=== PATIENT | female | born 1945 | race Caucasian/White ===

== ENCOUNTER 2021-04-16 16:09 | Emergency (ER) | payer MEDICARE, OTHER, SELFPAY ==
[2021-04-16 16:12] VITALS: BP 157/76; PULSE 75; RESP 14; TEMP 36.3; O2SAT 96; BMI 23.6
--- NOTE | 2021-04-16 17:02 | HMH.EDUTC ---
[facility] [place]ression: Skin lesion Disposition: Home, Self-Care Condition on Discharge: Good Instructions: DI for Headache Additional Instructions: If you have Headache you may take over the counter Motrin and/or Tylenol if your Family Doctor has told you that it is ok for your to take *Follow up with Family Doctor as scheduled Return if needed FOllow up with Dermatology for evaluation of skin lesion on right side of forehead Straight to ER if any life threatening symptoms, worse headache of your life, loss of vision or any life threatening symptoms Referrals: Caden Pena MD [Primary Care Provider] - As needed Time of Disposition: 17:17 Medical Decision Making - Rafiq Inquiry Pt receiving controlled substance: No Rafiq was queried for this patient: No Vital Signs: 04/16/21 16:12 04/16/21 17:15 Temperature 97.4 F L 98 F Temperature Source Tympanic Pulse Rate 77 Pulse Rate [Right] 75 Respiratory Rate 14 14 Blood Pressure 157/76 H Blood Pressure [Right Arm] 157/76 H Blood Pressure Mean [Right Arm] 103 Blood Pressure Source [Right Arm] Automatic Cuff Blood Pressure Position [Right Arm] Sitting 02 Sat by Pulse Oximetry 96 Oxygen Delivery Method Room Air Medical Decision Narrative: Patient states that she is not having any pain at this time, not having any visual disturbances or pain States that brown spot in hairline no longer feels swollen Discussed with patient that we could send her to the ED for further evaluation possible CT if ER physician seen the need and patient declined States that she is feeling fine now and has appointment with her new PCP tomorrow and she will discuss it with him Patient educated that if she starts having any facial weakness, numbness and educated on signs of stroke worsening of headache etc go straight to the closest ED patient did states that she has had some clear drainage from her nose and watery eyes like allergy symptoms also recommended follow up with Dermatolgy to view the brown round area noted in hairline that patient is concerned with that we would not remove it here in the [facility] HPI - General Stated complaint: knort on forehead above right eye Time Seen by Provider: 04/16/21 17:02 Mode of Arrival: Ambulatory Source of Information: Patient Limitations: No Limitations Description of Symptoms (Recalled from Triage Doc. by RN): pt states she has a knot on the R side of her anglican. pt states it swells up at times and is painful. pt says its hurting and swollen today. she also has a PLASENCIA. no visible swelling. HEENT Symptoms (Recalled from RN notes): No Resp Symptoms (Recalled from RN notes): No Skin Symptoms (Recalled from RN notes): Yes (round olson spot in hair line by Tushar floyd) MS Symptoms (Recalled from RN notes): No Functional Status (Recalled from RN notes): na - History of Present Illness Provider Complaint: Patient state that she has a dark spot on the right side of her anglican/forehead area that at times will swell up and be tender to the touch States that at times she has headaches on and off seen her previous PCP and dermatology several times for this and was told it was nothing States that earlier today she laid down and when she woke up it was swollen and tender to the touch and felt like she was going to get a headache and she seen some spots in front of her right eye States that after arrival at the [facility] [place] swelling is now gone, no longer tender and no longer having any pain States that she has tramadol but hasnt taken it - Related Data Allergies Allergy/AdvReac Type Severity Reaction Status Date / Time Sulfa (Sulfonamide Allergy Verified 04/16/21 16:41 Antibiotics) - Worker's Comp Is this a Worker's Comp case?: No [facility] History - Hepatitis A Screen Drug use history?: No High risk sexual behaviors?: No History of sexually transmitted infection?: No Currently employed?: No Childcare worker?: No Do you have indoor plumbing?:
[2021-04-16 17:15] VITALS: BP 157/76; PULSE 77; RESP 14; TEMP 36.6
== END 2021-04-16 17:20 | disposition home or self-care (01) ==
PROVIDERS: Emergency Provider Nurse Practitioner; PCP Family Medicine
DX: L98.9 Disorder of the skin and subcutaneous tissue, unspecified (principal); R51.9 Headache, unspecified
CPT/HCPCS: G0463; 99202

== ENCOUNTER → 2021-05-22 16:55 | Outpatient (CLI) | payer MEDICARE, OTHER, SELFPAY ==
[2021-05-22 18:25] LABS: C-Reactive Protein 5.4 mg/L (0-4)
[2021-05-22 18:49] LABS: Erythrocyte Sedimentation Rate 11 mm/hr (0-30)
== END ==
PROVIDERS: Visit Provider Family Medicine
DX: R51.9 Headache, unspecified (principal)
CPT/HCPCS: 85651; 86140

== ENCOUNTER → 2021-12-10 14:04 | Outpatient (CLI) | payer MEDICARE, OTHER, SELFPAY ==
--- NOTE | 2021-12-10 14:05 | CT_ITS ---
FINAL REPORT TECHNIQUE: Axial images were obtained through the chest without contrast. CLINICAL HISTORY: pulmonary nodules follow up COMPARISON: Outside report dated 01/07/2021 FINDINGS: There is no significant mediastinal mass or adenopathy. There is mild bilateral pleural and parenchymal scarring. There are several small bilateral noncalcified nodules. Paper Cup Machine Tender example is a 3 mm right middle lobe nodule well-seen on image #153 of series 3. There is a nodule in the left lower lobe measuring 4 mm well-seen on image #186 of series 3. Other smaller nodules are identified. There is a benign-appearing cyst in the superior pole of the right kidney measuring 0.3 cm. There is a peripherally calcified structure arising from the inferior margin of the spleen measuring 4.5 x 3.7 cm, probably related to an old calcified hematoma. IMPRESSION: Small bilateral nodules which are nonspecific. Recommend continued follow-up. Reviewed, Interpreted and Dictated by Romero Medina MD Transcribed by Misty Harper Authenticated by Romero Medina MD on 12/10/2021 04:52:42 PM [facility]
== END ==
PROVIDERS: PCP Family Medicine; Visit Provider Family Medicine
DX: R91.8 Other nonspecific abnormal finding of lung field (principal)
CPT/HCPCS: 71250

== ENCOUNTER → 2022-04-27 13:32 | Outpatient (CLI) | payer MEDICARE, OTHER, SELFPAY | PROVIDERS: PCP Family Medicine; Visit Provider Internal Medicine | DX: Z01.812 Encounter for preprocedural laboratory examination (principal); Z20.822 Contact with and (suspected) exposure to COVID-19; Z13.810 Encounter for screening for upper gastrointestinal disorder; K21.9 Gastro-esophageal reflux disease without esophagitis; Z12.11 Encounter for screening for malignant neoplasm of colon | CPT/HCPCS: C9803; U0003; U0005 ==

== ENCOUNTER 2022-04-29 08:34 | Day surgery (SDC) | payer MEDICARE, OTHER, SELFPAY ==
[2022-04-28 12:00] VITALS: BMI 26.2
[2022-04-29 09:21] VITALS: BP 169/86; PULSE 61; RESP 18; TEMP 36.4; O2SAT 96
--- NOTE | 2022-04-29 10:28 | P.PN_ITS ---
[facility] Anesthesia Checklist - Structural Data Admitted From: Home Planned Operative Procedure/s: egd/colonoscopy Consent for Planned Operative Procedure(s) Verified: Yes - Airway Assessment C-Spine Mobility Assessed: Yes TMJ Mobility Assessed: Yes Dentition: Good Dentition - Neurological Assessment Level of Consciousness: Awake, Alert, Appropriate - Anesthesia Plan Anesthesia Risk discussed: Yes Anesthesia Plan: Verified ASA Class: II Anesthesia Type: MAC [facility] History I have reviewed the patient's past medical history: Yes Medical History: Reports:: Anxiety, Asthma, Congestive Heart Failure, Depression, Gall Bladder Disease Denies:: Cancer, Diabetes Mellitus Type 1, Diabetes Mellitus Type 2, Internal Pacemaker, MRSA, Seizures *Have you ever received a pneumonia vaccine?: Yes *Have you received a flu vaccine this season?: Yes Anesthesia experience/problems:: none Other Surgeries: Yes: Cardiac Catheterization, Cholecystectomy, Colonoscopy, Tubal Ligation. No: Pacemaker Amputation: No Fractures: No - *Social History Last grade of school completed: 7th or 8th Smoking Status: Never smoker Alcohol Intake: never Substance Use Type: denies use *Occupational Status:: retired Housing: house Household Members: none *Travel in the last 8 weeks: None - Psychiatric History Pschychiatric History:: Reports:: Anxiety, Depression Family Hx:: No significant family history
[2022-04-29 10:31] VITALS: O2SAT 96
[2022-04-29 11:00] VITALS: BP 95/65; PULSE 86; RESP 18; TEMP 36.5; O2SAT 95
--- NOTE | 2022-04-29 11:02 | HMH.SCOPE ---
- Procedure: Date: 04/29/22 Patient Date of :: 1945 Procedure Performed:: EGD Indications:: 76 year old presents for EGD evaluation of GERD and intermittent abdominal pain. Symptoms have improved with use of pantoprazole. Performing Provider:: Kamar Rangel MD Referring Provider:: Caden Pena MD Sedation:: See RN records Procedure:: The gastroscope was gently passed through the incisoral orifice into the oral cavity and under direct visualization the esophagus was intubated. The endoscope was passed down the esophagus, through the stomach, and into the duodenum. Color, texture, mucosa, and anatomy of the esophagus, stomach, and duodenum were carefully examined with the scope. Findings:: Oropharynx: normal Esophagus: normal EG Junction: intact at 40 cm Cardia: normal Fundus: normal Body: Mild gastritis. Biopsies obtained. Bilious fluid Antrum: Mild gastritis. Biopsies obtained Duodenal bulb: normal Duodenum (second and third portion): normal Recommendations:: Await pathology results Continue pantoprazole 40 mg once daily Complications:: None Estimated blood obtained (mL): 0
--- NOTE | 2022-04-29 11:04 | HMH.SCOPE ---
- Procedure: Date: 04/29/22 Patient Date of :: 1945 Procedure Performed:: Colonoscopy Indications:: 76 year old presents for surveillance colonoscopy for history of polyps Performing Provider:: Kamar Rangel MD Referring Provider:: Caden Pena MD Sedation:: See RN records Procedure:: After placing the patient in the left lateral decubitus position, the colonoscopy was gently inserted into the rectum and under direct visualization advanced to the cecum which was identified by transillumination in the right lower quadrant, identification of the ileocecal valve, appendiceal orifice, and cecal strap. Color, texture, mucosa, and anatomy of the colon were carefully examined with the scope. Findings:: Anal canal: normal Rectum: Sessile polyp less than 5 mm in size. Removed with snare polypectomy Sigmoid colon: normal without polyps or inflammatory changes Descending colon: normal without polyps or inflammatory changes Splenic flexure: normal Transverse colon: normal without polyps or inflammatory changes Hepatic flexure: normal Ascending colon: normal without polyps or inflammatory changes Cecum: normal Terminal ileum: not visualized Recommendations:: Await pathology results No further surveillance colonoscopy can be recommended Complications:: None Estimated blood obtained (mL): 0
[2022-04-29 11:10] VITALS: BP 114/62; PULSE 79; RESP 18; O2SAT 96
[2022-04-29 11:20] VITALS: BP 128/68; PULSE 84; RESP 18; O2SAT 95
[2022-04-29 11:29] VITALS: BP 140/70; PULSE 85; RESP 18; O2SAT 94
== END 2022-04-29 11:30 | disposition home or self-care (01) ==
LOC: OUTP 08:35
PROVIDERS: PCP Family Medicine; Visit Provider Internal Medicine
PROC: 0DJ08ZZ Inspection of Upper Intestinal Tract, Via Natural or Artificial Opening Endoscopic (ICD-10-PCS; CPT 43235; principal; 2022-04-29 10:30)
DX: K21.9 Gastro-esophageal reflux disease without esophagitis (principal); Z12.11 Encounter for screening for malignant neoplasm of colon; R10.9 Unspecified abdominal pain; Z86.010 Personal history of colon polyps; Z79.899 Other long term (current) drug therapy; I10 Essential (primary) hypertension; F32.A Depression, unspecified
CPT/HCPCS: 43239; 45385; 88305

== ENCOUNTER → 2022-12-01 13:10 | Outpatient (CLI) | payer MEDICARE, OTHER, SELFPAY ==
--- NOTE | 2022-12-01 13:14 | XR_ITS ---
FINAL REPORT CLINICAL HISTORY: pain, hx fx in L4 and L5 FINDINGS: AP and lateral views of the lumbar spine were obtained. There is no prior exam for comparison. There is no acute fracture or malalignment. Multilevel degenerative disease is most pronounced at L5-S1. The paraspinal soft tissues are normal. There is a periphery calcified lesion in the left upper quadrant which is likely benign and within the spleen. IMPRESSION: No acute osseous abnormality of the lumbar spine. Reviewed, Interpreted and Dictated by Tamara Posey MD Transcribed by Tony Griffith Authenticated and [facility]
--- NOTE | 2022-12-01 13:14 | XR_ITS ---
FINAL REPORT CLINICAL HISTORY: pain, hx fx in L4 and L5 FINDINGS: AP and lateral views of the thoracic spine were obtained. There is no prior exam for comparison. There is no acute fracture or acute malalignment. Mild multilevel degenerative disease. The paraspinal soft tissues are normal. IMPRESSION: No acute osseous abnormality of the thoracic spine. Reviewed, Interpreted and Dictated by Tamara Posey MD Transcribed by Tony Griffith Authenticated and [facility]
== END ==
PROVIDERS: PCP Family Medicine; Visit Provider Family Medicine
DX: G89.29 Other chronic pain (principal); M54.9 Dorsalgia, unspecified; M54.6 Pain in thoracic spine; M54.50 Low back pain, unspecified
CPT/HCPCS: 72070; 72100

== ENCOUNTER → 2023-03-22 14:35 | Outpatient (CLI) | payer MEDICARE, OTHER, SELFPAY ==
[2023-03-22 18:40] LABS: Chloride 96 mmol/L (98-107); Sodium 141 mmol/L (136-145)
[2023-03-22 18:41] LABS: Basophils % 0.5 % (0.1-2.0); Eosinophils # 0.4 K/mm3 (0.0-0.4); Hematocrit 44.4 % (37.0-47.0); Lymphocytes # 1.9 K/mm3 (0.7-4.5); Lymphocytes % 27.3 % (10-50); Mean Corpuscular HGB Conc 31.5 g/dL (31.8-35.4); Mean Corpuscular Hemoglobin 28.4 pg (27.0-31.2); Mean Corpuscular Volume 90.2 fl (81-99); Mean Platelet Volume 7.9 fl (7.4-10.4); Monocytes # 0.5 K/mm3 (0.1-1.0); Monocytes % 6.6 % (1.7-9.3); Neutrophils # 4.1 K/mm3 (1.8-7.8); Neutrophils % 59.6 % (37.0-80.0); Platelet Count 275 K/mm3 (142-424); Red Blood Count 4.92 M/mm3 (4.20-5.40); Red Cell Distribution Width 13.2 % (11.5-17.5); White Blood Count 6.9 K/mm3 (4.8-10.8)
[2023-03-22 18:42] LABS: Blood Urea Nitrogen 11 mg/dl (7-17); Estimated Glomerular Filt Rate 60 ml/min (>60); GFR (African American) 73 ML/MIN (>60)
[2023-03-22 18:43] LABS: Alanine Aminotransferase 18 U/L (12-78); Albumin Level 4.5 g/dl (3.5-5.0); Albumin/Globulin Ratio 1.6 (1.1-1.8); Alkaline Phosphatase 50 U/L (38-126); Aspartate Amino Transferase 28 U/L (14-36); Bilirubin,Total 0.7 mg/dl (0.2-1.3); Calcium 9.3 mg/dl (8.4-10.2); Carbon Dioxide 31 mmol/L (22.0-30.0); Globulin 2.8 g/dL (1.3-3.2); Glucose 86 mg/dl (74-100); Total Protein,Serum 7.3 g/dl (6.3-8.2)
== END ==
PROVIDERS: PCP Nurse Practitioner Family; Visit Provider Nurse Practitioner Family
DX: L98.9 Disorder of the skin and subcutaneous tissue, unspecified (principal); G89.29 Other chronic pain; M54.9 Dorsalgia, unspecified
CPT/HCPCS: 80053; 85025

== ENCOUNTER → 2023-03-24 14:57 | Outpatient (CLI) | payer MEDICARE, OTHER, SELFPAY ==
--- NOTE | 2023-03-24 15:03 | XR_ITS ---
FINAL REPORT CLINICAL HISTORY: Neck pain, mid back and low back pain, Recent fall 3 wks ago COMPARISON: 12/01/2022 thoracic and lumbosacral spine FINDINGS: CERVICAL SPINE Four views of the cervical spine were obtained. There is no fracture present. There is no malalignment. There is moderate degenerative disc disease at C5-6. Mild degenerative disc space narrowing at C4-5 and C6-7. There is bony neural foraminal narrowing bilaterally at C4-5 and C5-6. THORACIC SPINE Three views of the thoracic spine were obtained. There is no fracture present. There is no malalignment. There is no significant degenerative change. LUMBOSACRAL SPINE Four views of the lumbosacral spine were obtained. There is no fracture. There is moderate diffuse degenerative disc disease. Osteopenia is noted. There is a calcified mass projected over the left upper quadrant which may be of splenic origin measuring greater than 5 cm. IMPRESSION: No acute fracture identified. Degenerative changes as above. Calcified mass left upper quadrant. Recommend CT correlation if not previously evaluated. Reviewed, Interpreted and Dictated by Ingrid Gore MD Transcribed by Rylie Prieto Authenticated and [facility]
--- NOTE | 2023-03-24 15:03 | XR_ITS ---
FINAL REPORT CLINICAL HISTORY: Acute left hip pain, fall 3 weeks ago COMPARISON: None FINDINGS: LEFT HIP: Two views of the left hip demonstrate no acute fracture or dislocation. The joint spaces appear normal. The visualized bony structures are well aligned. No soft tissue abnormality is seen. IMPRESSION: No acute bony abnormality. Reviewed, Interpreted and Dictated by Ingrid Gore MD Transcribed by Rylie Prieto Authenticated and . [facility]
== END ==
PROVIDERS: PCP Family Medicine; Visit Provider Nurse Practitioner Family
DX: M25.552 Pain in left hip
CPT/HCPCS: 72084; 73502

== ENCOUNTER → 2023-04-09 07:04 | Outpatient (CLI) | payer MEDICARE, OTHER, SELFPAY ==
--- NOTE | 2023-04-09 07:28 | CT_ITS ---
FINAL REPORT TECHNIQUE: Axial CT images of the abdomen and pelvis were obtained before and after the administration of IV contrast. This study was performed with techniques to keep radiation doses as low as reasonably achievable (ALARA). Individualized dose reduction techniques using automated exposure control or adjustment of mA and/or kV according to the patient''s size were employed. CLINICAL HISTORY: abdominal mass noted on lspine xray FINDINGS: Abdomen: There is mild scarring or atelectasis at the left lung base. The heart is normal in size. The liver has an unremarkable appearance, without evidence of mass or biliary duct dilatation. Patient is status post cholecystectomy. A peripherally calcified mass is seen in the inferior spleen measuring 46 mm likely representing posttraumatic cyst. No adrenal masses present. The pancreas has an unremarkable appearance. There are bilateral renal cysts. The kidneys enhance normally. The aorta is normal in caliber. There is no free fluid or adenopathy. No mass or abnormal fluid collection is seen. There is stranding of the small bowel mesentery which may represent mesenteric panniculitis or may be reactive. Precontrast images demonstrate no evidence of nephrolithiasis. Pelvis: The appendix is normal. The urinary bladder is unremarkable. No inflammatory process is seen. There is no evidence of mass or adenopathy. There is no evidence of bowel obstruction. IMPRESSION: Peripherally calcified mass in the inferior spleen likely representing posttraumatic cyst. Stranding of small bowel mesentery which may represent mesenteric panniculitis or may be reactive. Reviewed, Interpreted and Dictated by Gavin Hogan III, MD Transcribed by Lila Toscano Authenticated and . [facility]
== END ==
PROVIDERS: PCP Family Medicine; Visit Provider Nurse Practitioner Family
DX: R19.02 Left upper quadrant abdominal swelling, mass and lump (principal)
CPT/HCPCS: 74178; Q9967

== ENCOUNTER → 2023-10-20 12:00 | Outpatient (CLI) | payer MEDICARE, OTHER, SELFPAY ==
[2023-10-20 19:33] LABS: Amphetamine/Metha Screen,Urine Negative ng/ml (<1000)
[2023-10-20 19:35] LABS: Barbiturates Screen,Urine Negative ng/ml (<200); Benzodiazepines Screen,Urine Positive ng/ml (<200)
[2023-10-20 19:36] LABS: Cannabinoid Screen,Urine Negative ng/ml (<50)
[2023-10-20 19:37] LABS: Cocaine Screen,Urine Negative ng/ml (<300); Methadone Screen,Urine Negative ng/ml (<300)
[2023-10-20 19:38] LABS: Opiate Screen,Urine Negative ng/ml (<300); Phencyclidine Screen,Urine Negative ng/ml (<25)
== END ==
PROVIDERS: PCP Family Medicine; Visit Provider Family Medicine
DX: Z79.899 Other long term (current) drug therapy (principal)
CPT/HCPCS: 80305

== ENCOUNTER 2024-10-05 13:02 | Emergency (ER) | payer MEDICARE, OTHER, SELFPAY ==
[2024-10-05] VITALS (7 sets, daily range): BP systolic 131–194; BP diastolic 71–122; PULSE 95–118; RESP 12–21; TEMP 36.7; O2SAT 93–95; BMI 23.9
--- NOTE | 2024-10-05 14:02 | ECG_ITS ---
APPROVED REPORT Exam: Resting ECG HR:114 bpm ECG Measurements Heart Rate 114 AXES MI 145 P 65 QRSd 90 QRS 38 QT 337 T 67 QTc 405 Conclusion SINUS TACHYCARDIA POSSIBLE RIGHT VENTRICULAR CONDUCTION DELAY [RSR (QR) IN V1/V2] ABNORMAL RHYTHM ECG Electronically signed by : NEISHA YUAN, 10/05/2024 15:13:00
--- NOTE | 2024-10-05 14:03 | ED_ITS ---
Discharge Plan Disposition Patient Disposition: Home, Self-Care Condition: Good Prescriptions Prescriptions: No Action buspirone 5 mg tablet 5 mg PO BID Qty: 180 1RF escitalopram oxalate 10 mg tablet See Rx Instructions .ROUTE .COMPLEX Qty: 90 1RF Dose Instruction: TAKE ONE TABLET BY MOUTH EVERY DAY Rx Instructions: TAKE ONE TABLET BY MOUTH EVERY DAY meloxicam 7.5 mg tablet 7.5 mg PO DAILY Qty: 30 3RF cholecalciferol (vitamin D3) 1,250 mcg (50,000 unit) capsule 1,250 mcg PO WEEKLY Patient Comments: TAKE ONE CAPSULE BY MOUTH WEEKLY atorvastatin 10 mg tablet 10 mg PO DAILY Patient Comments: TAKE ONE TABLET BY MOUTH AT BEDTIME amlodipine-benazepril 10-40 mg capsule 1 cap PO DAILY Patient Comments: TAKE ONE CAPSULE BY MOUTH EVERY DAY alprazolam [Xanax] 1 mg tablet 0.5 mg PO TID PRN (Reason: anxiety) Qty: 45 5RF Rx Instructions: use sparingly when able Referrals Follow up/Referrals: Caden Pena MD [Primary Care Provider] - See instructions Activity Restrictions/Add. Instructions Additional Instructions/Restrictions: On workup today, you were found to have stable pulmonary nodules that are not significantly changed from prior imaging. At this time it was felt you are safe to be discharged home. If new or worsening symptoms please do not hesitate to return the emergency department. As discussed please buy compression stockings also known as ROLANDO hose to have on your legs during the day. Please follow-up with your appeals rn or family doctor for possible reinitiation of your blood pressure medication as discussed. Clinical Impressions Clinical Impression: Venous stasis, Chest pain Print Language Print Language: Divehi Discharge ED Provider: Vanda Waterman General Adult HPI <Giancarlo Brizuela MD - Last Filed: 10/05/24 14:53> General Chief complaint: Recheck/Abnormal Lab/Rx Stated complaint: high b/p, swollen arms and legs, dizzy Time Seen by Provider: 10/05/24 13:12 Mode of Arrival: Ambulatory Source of Information: Patient Limitations: No Limitations Description of Symptoms (Recalled from ER Triage Doc. by RN): Reports having symptoms for approx 1 year. States that she has been seen multiple times by her PCP, Cardiology and Psyc with no improvement. States she thinks they are tired of dealing with her. Reports leg swelling, arm pain and shaking. States she has been having multiple panic attacks and it makes her feel as if she is going to . History of Present Illness HPI narrative: Patient is 79-year-old female who presents emergency department for multiple chronic complaints. Over the last year she has had stuttering twinging chest pain and shortness of breath. She is not having any chest pain currently. 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 She also has intermittent swelling of her bilateral lower extremities that is symmetrical and worse as the day goes on, she does not wear compression hose and it improves upon lying down. She does not take water pills. No other acute complaints at this time. Related Data Home Medications ?Medication ?Instructions ?Recorded ?Confirmed amlodipine 10 mg-benazepril 40 mg 1 cap PO DAILY 09/18/24 09/18/24 capsule atorvastatin 10 mg tablet 10 mg PO DAILY 09/18/24 09/18/24 cholecalciferol (vitamin D3) 1,250 1,250 mcg PO WEEKLY 09/18/24 09/18/24 mcg (50,000 unit) capsule Previous Rx's ?Medication ?Instructions ?Recorded buspirone 5 mg tablet 5 mg PO BID #180 tabs 05/10/23 escitalopram oxalate 10 mg tablet See Rx Instructions .Route 01/06/24 .COMPLEX #90 tabs alprazolam 1 mg tablet (Xanax) 0.5 mg (1/2 x 1 mg) PO TID PRN 06/08/24 anxiety #45 tabs meloxicam 7.5 mg tablet 7.5 mg PO DAILY #30 tabs 07/14/24 Allergies Allergy/AdvReac Type Severity Reaction Status Date / Time aspirin Allergy Unknown Verified 09/18/24 14:18 duloxetine (From Cymbalta) Allergy Unknown Verified 09/18/24 14:18 ibuprofen Allergy Unknown Verified 09/18/24 14:18 Sulfa (Sulfonamide Allergy Verified 09/18/24 14:18 Antibiotics) [facility] <Giancarlo Brizuela MD - Last Filed: 10/05/24 14:53> [facility] Disclaimer: The information contained in this section may have been updated after the patient was seen, as this information can be updated by other users. Medical History (Updated 10/05/24 @ 14:47 by Giancarlo Brizuela MD) Neoplasm of uncertain behavior of scalp History of recent fall Chronic back pain greater than 3 months duration GERD (gastroesophageal reflux disease) Asthma Anxiety Depression Surgical History History of cholecystectomy Hx of tubal ligation Family History Other Cancer Hyperlipidemia Social History (Updated 10/05/24 @ 14:53 by Giancarlo Brizuela MD) Smoking Status: Never smoker alcohol intake: never substance use type: denies use current occupational status: retired Travel in the last 8 weeks: None household members: none housing: house current occupational exposures/hazards: No caffeine: Yes Other Medical History Have you received the Flu Vaccine for this season: Yes Have you received the Pneumonia Vaccine: No <Giancarlo Brizuela MD - Last Filed: 10/05/24 14:53> ROS Obtained: Yes Systems reviewed as appropriate & no additional complaints except as documented Physical Exam <Giancarlo Brizuela MD - Last Filed: 10/05/24 14:53> General General appearance: alert and in no apparent distress Head Head exam: atraumatic and normocephalic Eye Eye exam: Present PERRL and EOMI ENT ENT exam: Present mucous membranes moist Neck Neck exam: Present normal inspection Chest Chest inspection: Present normal inspection and symmetric chest wall rise Respiratory Respiratory exam: Present normal lung sounds bilaterally; Absent respiratory distress Cardiovascular Cardiovascular exam: Present normal rhythm and tachycardia Abdominal Exam Abdominal exam: Present soft; Absent tenderness Extremities Exam Extremities exam: Present normal inspection and other (No pitting edema bilateral lower extremities.) Neurological Exam Neurological exam: Present alert Psychiatric Psychiatric exam: Present normal affect Skin Skin exam: Present warm and dry Medical Decision Making <Giancarlo Brizuela MD - Last Filed: 10/05/24 14:53> Medical Records Screening: Per USPSTF and CDC recommendations, given the prevalence of disease in our region, it is our hospital?s policy to screen for HIV and viral Hepatitis for all patients aged 18 and over and those with ongoing risk factors. Rafiq Inquiry Pt receiving controlled substance: No Vital Signs: 10/05/24 13:13 10/05/24 13:31 10/05/24 13:47 Temperature 98.1 F Temperature Source Oral Pulse Rate 118 H 107 H Pulse Rate [Radial] 111 H Respiratory Rate 20 21 20 Blood Pressure 152/122 H 154/81 H Blood Pressure [Right Arm] 194/104 H Blood Pressure Mean 132 105 Blood Pressure Mean [Right Arm] 134 Blood Pressure Source [Right Arm] Automatic Cuff Blood Pressure Position [Right Arm] Sitting 02 Sat by Pulse Oximetry 95 94 L 93 L Oxygen Delivery Method Room Air Room Air Room Air 10/05/24 14:00 10/05/24 14:31 10/05/24 15:30 Temperature Temperature Source Pulse Rate 95 H 107 H 108 H Pulse Rate [Radial] Respiratory Rate 16 12 Blood Pressure 144/93 H 131/71 149/95 H Blood Pressure [Right Arm] Blood Pressure Mean Blood Pressure Mean [Right Arm] Blood Pressure Source [Right Arm] Blood Pressure Position [Right Arm] 02 Sat by Pulse Oximetry 93 L 94 L 95 Oxygen Delivery Method 10/05/24 16:23 Temperature 98.1 F Temperature Source Pulse Rate 108 H Pulse Rate [Radial] Respiratory Rate 18 Blood Pressure 144/100 H Blood Pressure [Right Arm] Blood Pressure Mean Blood Pressure Mean [Right Arm] Blood Pressure Source [Right Arm] Blood Pressure Position [Right Arm] 02 Sat by Pulse Oximetry Oxygen Delivery Method Room Air Lab Data Lab Results 10/05/24 14:12: WBC 7.1, RBC 4.76, Hgb 13.7, Hct 42.3, MCV 89.0, MCH 28.9, MCHC 32.5, RDW 13.3, Plt Count 202, MPV 7.4, Neut % (Auto) 74.7, Lymph % (Auto) 16.4, [place] % (Auto) 5.9, Eos % (Auto) 2.4, Baso % (Auto) 0.6, Neut # (Auto) 5.3, Lymph # (Auto) 1.2, [place] # (Auto) 0.4, Eos # (Auto) 0.2, Baso # (Auto) 0.0, D-Dimer 0.91 H, Sodium 142, Potassium 3.8, Chloride 103, Carbon Dioxide 33 H, Anion Gap 9.8, BUN 18 H, Creatinine 1.00, Estimated Creat Clear 45, Estimated GFR 53 L, Est GFR ( Amer) 64, Glucose 95, Calcium 9.0, Total Bilirubin 1.0, AST 25, ALT 16, Alkaline Phosphatase 38, Troponin I < 0.01, NT-Pro-B Natriuret Pep 263, Total Protein 6.8, Albumin 4.3, Globulin 2.5, Albumin/Globulin Ratio 1.7, HIV 1&2 Antibody Rapid Nonreactive 10/05/24 14:12 10/05/24 14:12 Orders (Tests/Meds): ED MEDICATIONS Discontinued Medications Generic Name Dose Route Start Last Admin Trade Name Richardq PRN Reason Stop Dose Admin Iopamidol 80 ml 10/05/24 15:04 10/05/24 15:05 Iopamidol-370 (76%);100ml Bottle IV 10/05/24 15:05 80 ml ONCE ONE Administration Sodium Chloride 40 ml 10/05/24 15:04 10/05/24 15:05 0.9 % Sodium Chloride 50 Ml Vial IV 10/05/24 15:05 40 ml ONCE ONE Administration Sodium Chloride 10 ml 10/05/24 15:04 10/05/24 15:05 Sodium Chloride 0.9% 10ml Syr (Rad Only) IV 10/05/24 15:05 10 ml ONCE ONE Administration ORDERS Category Date Time Status CT angio chest PE protocol Stat Cat Scan 10/05/24 14:45 Completed CXR --portable [XR chest portable] Stat Exams 10/05/24 14:03 Completed BNP [NT Pro Brain Natriuretic Pep.] Stat Lab 10/05/24 14:12 Completed CBC w/Auto Diff [Complete Blood Count Auto Diff] Stat Lab 10/05/24 14:12 Completed CMP [Comprehensive Metabolic Panel] Stat Lab 10/05/24 14:12 Completed D-Dimer Stat Lab 10/05/24 14:12 Completed HIV (1&2) Antibody Rapid Stat Lab 10/05/24 14:12 Completed Hep C Ab with Reflex to RNA Stat Lab 10/05/24 13:16 Received Trop I [Troponin I] Stat Lab 10/05/24 14:12 Completed ECG Data Tracing #1: Independently interpreted by me rate is 114, rhythm is regular, axis is normal, no ST elevation in anatomical contiguous leads, QTc 405 HEART Score History (anamnesis): Slightly suspicious ECG: Normal Age: >65 years Risk factors: 1-2 risk factors Troponin: </= normal limit HEART Score: 3 Medical Decision Narrative: In summary patient is 79-year-old female with past medical history described above who presents emergency department for evaluation of bilateral lower extremity intermittent swelling as well as intermittent chest pain. Patient is hemodynamically stable nontoxic-appearing upon arrival, afebrile, slight tachycardia. With the specter her symmetric bilateral lower extremity swelling that she is not experiencing significantly currently I suspect venous incompetence given her history and physical exam. For this the importance of ROLANDO lilly was discussed and patient acknowledged understanding. With respect to chest pain has been going on for a year we will conduct low risk chest pain workup, she does not have any currently. Workup will be conducted with chest x- ray, EKG, basic labs, single troponin. Initial workup reviewed by me, no significant leukocytosis, no MELINDA or critical electrolyte abnormality. D-dimer 0.91 given the chronicity of this and the fact that it cannot be excluded Wells criteria CT angio chest will be obtained. Initial troponin undetectably low. CTA chest and repeat evaluation pending at time of transition of care to the oncoming physician, Dr. Waterman. <Vanda Waterman, DO - Last Filed: 10/05/24 16:39> Vital Signs: 10/05/24 13:13 10/05/24 13:31 10/05/24 13:47 Temperature 98.1 F Temperature Source Oral Pulse Rate 118 H 107 H Pulse Rate [Radial] 111 H Respiratory Rate 20 21 20 Blood Pressure 152/122 H 154/81 H Blood Pressure [Right Arm] 194/104 H Blood Pressure Mean 132 105 Blood Pressure Mean [Right Arm] 134 Blood Pressure Source [Right Arm] Automatic Cuff Blood Pressure Position [Right Arm] Sitting 02 Sat by Pulse Oximetry 95 94 L 93 L Oxygen Delivery Method Room Air Room Air Room Air 10/05/24 14:00 10/05/24 14:31 10/05/24 15:30 Temperature Temperature Source Pulse Rate 95 H 107 H 108 H Pulse Rate [Radial] Respiratory Rate 16 12 Blood Pressure 144/93 H 131/71 149/95 H Blood Pressure [Right Arm] Blood Pressure Mean Blood Pressure Mean [Right Arm] Blood Pressure Source [Right Arm] Blood Pressure Position [Right Arm] 02 Sat by Pulse Oximetry 93 L 94 L 95 Oxygen Delivery Method 10/05/24 16:23 Temperature 98.1 F Temperature Source Pulse Rate 108 H Pulse Rate [Radial] Respiratory Rate 18 Blood Pressure 144/100 H Blood Pressure [Right Arm] Blood Pressure Mean Blood Pressure Mean [Right Arm] Blood Pressure Source [Right Arm] Blood Pressure Position [Right Arm] 02 Sat by Pulse Oximetry Oxygen Delivery Method Room Air Lab Data Lab Results 10/05/24 14:12: WBC 7.1, RBC 4.76, Hgb 13.7, Hct 42.3, MCV 89.0, MCH 28.9, MCHC 32.5, RDW 13.3, Plt Count 202, MPV 7.4, Neut % (Auto) 74.7, Lymph % (Auto) 16.4, [place] % (Auto) 5.9, Eos % (Auto) 2.4, Baso % (Auto) 0.6, Neut # (Auto) 5.3, Lymph # (Auto) 1.2, [place] # (Auto) 0.4, Eos # (Auto) 0.2, Baso # (Auto) 0.0, D-Dimer 0.91 H, Sodium 142, Potassium 3.8, Chloride 103, Carbon Dioxide 33 H, Anion Gap 9.8, BUN 18 H, Creatinine 1.00, Estimated Creat Clear 45, Estimated GFR 53 L, Est GFR ( Amer) 64, Glucose 95, Calcium 9.0, Total Bilirubin 1.0, AST 25, ALT 16, Alkaline Phosphatase 38, Troponin I < 0.01, NT-Pro-B Natriuret Pep 263, Total Protein 6.8, Albumin 4.3, Globulin 2.5, Albumin/Globulin Ratio 1.7, HIV 1&2 Antibody Rapid Nonreactive Orders (Tests/Meds): ED MEDICATIONS Discontinued Medications Generic Name Dose Route Start Last Admin Trade Name Freq PRN Reason Stop Dose Admin Iopamidol 80 ml 10/05/24 15:04 10/05/24 15:05 Iopamidol-370 (76%);100ml Bottle IV 10/05/24 15:05 80 ml ONCE ONE Administration Sodium Chloride 40 ml 10/05/24 15:04 10/05/24 15:05 0.9 % Sodium Chloride 50 Ml Vial IV 10/05/24 15:05 40 ml ONCE ONE Administration Sodium Chloride 10 ml 10/05/24 15:04 10/05/24 15:05 Sodium Chloride 0.9% 10ml Syr (Rad Only) IV 10/05/24 15:05 10 ml ONCE ONE Administration ORDERS Category Date Time Status CT angio chest PE protocol Stat Cat Scan 10/05/24 14:45 Completed CXR --portable [XR chest portable] Stat Exams 10/05/24 14:03 Completed BNP [NT Pro Brain Natriuretic Pep.] Stat Lab 10/05/24 14:12 Completed CBC w/Auto Diff [Complete Blood Count Auto Diff] Stat Lab 10/05/24 14:12 Completed CMP [Comprehensive Metabolic Panel] Stat Lab 10/05/24 14:12 Completed D-Dimer Stat Lab 10/05/24 14:12 Completed HIV (1&2) Antibody Rapid Stat Lab 10/05/24 14:12 Completed Hep C Ab with Reflex to RNA Stat Lab 10/05/24 13:16 Received Trop I [Troponin I] Stat Lab 10/05/24 14:12 Completed HEART Score HEART Score: 3 Medical Decision Narrative: In summary patient is 79-year-old female with past medical history described above who presents emergency department for evaluation of bilateral lower extremity intermittent swelling as well as intermittent chest pain. Patient is hemodynamically stable nontoxic-appearing upon arrival, afebrile, slight tachycardia. With the specter her symmetric bilateral lower extremity swelling that she is not experiencing significantly currently I suspect venous incompetence given her history and physical exam. For this the importance of ROLANDO hose was discussed and patient acknowledged understanding. With respect to chest pain has been going on for a year we will conduct low risk chest pain workup, she does not have any currently. Workup will be conducted with chest x- ray, EKG, basic labs, single troponin. Initial workup reviewed by me, no significant leukocytosis, no MELINDA or critical electrolyte abnormality. D-dimer 0.91 given the chronicity of this and the fact that it cannot be excluded Wells criteria CT angio chest will be obtained. Initial troponin undetectably low. CTA chest and repeat evaluation pending at time of transition of care to the oncoming physician, Dr. Waterman. Guevara, DO: I assumed care of the patient at [address] angiogram of the chest read and it noted stable pulmonary nodules but no acute PE or other pathology. She does have atelectasis. Ultimately, workup is very reassuring. On my assessment, the patient is resting comfortably with no concerns or complaints and states she is feeling fine. Vitals are reassuring on cardiac telemetry. I feel that she is appropriate for discharge home with close follow- up with her primary care provider. She was given strict return precautions and was discharged after all questions were answered. Critical Care <Giancarlo Brizuela MD - Last Filed: 10/05/24 14:53> Critical Care Time Critical Care Time: No
--- NOTE | 2024-10-05 14:03 | XR_ITS ---
PROCEDURE INFORMATION: Exam: XR Chest Exam date and time: 10/05/2024 2:08 PM Age: 79 years old Clinical indication: Shortness of breath; Additional info: SOB TECHNIQUE: Imaging protocol: Radiologic exam of the chest. Views: 1 view. Total images: 1 COMPARISON: CT CHEST WO CON 12/10/2021 2:18 PM FINDINGS: Lungs: Atelectatic and/or early infiltrative changes noted within the right lower lobe. Bilateral hyperinflation is present. Pleural spaces: Unremarkable. No pleural effusion. No pneumothorax. Heart/Mediastinum: The heart is not enlarged. Bones/joints: The thoracic spine demonstrates mild degenerative changes at multiple levels. IMPRESSION: 1. Atelectatic and/or early infiltrative changes noted within the right lower lobe. 2. Bilateral hyperinflation is present.
[2024-10-05 14:26] LABS: Basophils % 0.6 % (0.1-2.0); Eosinophils # 0.2 K/mm3 (0.0-0.4); Eosinophils % 2.4 % (0.1-12.0); Hematocrit 42.3 % (37.0-47.0); Hemoglobin 13.7 g/dL (12.2-16.2); Lymphocytes # 1.2 K/mm3 (0.7-4.5); Lymphocytes % 16.4 % (10-50); Mean Corpuscular HGB Conc 32.5 g/dL (31.8-35.4); Mean Corpuscular Hemoglobin 28.9 pg (27.0-31.2); Mean Platelet Volume 7.4 fl (7.4-10.4); Monocytes # 0.4 K/mm3 (0.1-1.0); Monocytes % 5.9 % (1.7-9.3); Neutrophils # 5.3 K/mm3 (1.8-7.8); Neutrophils % 74.7 % (37.0-80.0); Platelet Count 202 K/mm3 (142-424); Red Blood Count 4.76 M/mm3 (4.20-5.40); Red Cell Distribution Width 13.3 % (11.5-17.5); White Blood Count 7.1 K/mm3 (4.8-10.8)
[2024-10-05 14:36] LABS: Alanine Aminotransferase 16 U/L (12-78); Albumin Level 4.3 g/dl (3.5-5.0); Albumin/Globulin Ratio 1.7 (1.1-1.8); Alkaline Phosphatase 38 U/L (38-126); Anion Gap 9.8 mEq/L (5-15); Aspartate Amino Transferase 25 U/L (14-36); Blood Urea Nitrogen 18 mg/dl (7-17); Carbon Dioxide 33 mmol/L (22.0-30.0); Chloride 103 mmol/L (98-107); Creatinine Clearance Estimated 45 mL/min (50-200); Estimated Glomerular Filt Rate 53 ml/min (>60); GFR (African American) 64 ML/MIN (>60); Globulin 2.5 g/dL (1.3-3.2); Glucose 95 mg/dl (74-100); Potassium 3.8 mmoL/L (3.5-5.1); Sodium 142 mmol/L (136-145); Total Protein,Serum 6.8 g/dl (6.3-8.2)
[2024-10-05 14:40] LABS: D-Dimer 0.91 ug/mL (0.0-0.5)
--- NOTE | 2024-10-05 14:45 | CT_ITS ---
PROCEDURE INFORMATION: Exam: CTA Chest With Contrast Exam date and time: 10/05/2024 2:53 PM Age: 79 years old Clinical indication: Shortness of breath; Additional info: Sob/tachy TECHNIQUE: Imaging protocol: Computed tomographic angiography of the chest with contrast. Exam focused on the arteries. 3D rendering (Not supervised by radiologist): MIP and/or 3D reconstructed images were created by the technologist. Radiation optimization: All CT scans at this facility use at least one of these dose optimization techniques: automated exposure control; mA and/or kV adjustment per patient size (includes targeted exams where dose is matched to clinical indication); or iterative reconstruction. Contrast material: ISOVUE 370; Contrast volume: 80 ml; Contrast route: INTRAVENOUS (IV); COMPARISON: CT CHEST WO CON 12/10/2021 2:18 PM FINDINGS: Pulmonary arteries: There are no abnormal filling defects within the pulmonary arterial system. The examination is negative for pulmonary thromboembolism. Aorta: No aortic aneurysm. No aortic dissection. Lungs: There is mild atelectasis at the inferior left lingula and inferior left lower lobe. 5 mm pleural-based nodule in the left lower lobe (series 3, image 56) appears unchanged compared to 12/10/2021. Right lung nodules (series 3, images 47, 51 and 53) are also unchanged. Pleural spaces: No pleural effusion. No pneumothorax. Heart: Heart size within upper limits of normal. No significant pericardial effusion. No coronary arterial calcifications are detected. Lymph nodes: No pathologically enlarged lymph nodes are identified. Bones/joints: Mild spinal degenerative changes.No acute osseous abnormality is detected. Soft tissues: Unremarkable. IMPRESSION: 1. Negative for pulmonary embolism. 2. Mild atelectasis at the left lung base. Pneumonitis is not excluded. 3. Subcentimeter nodules in both lungs, as above, are unchanged compared to 12/10/2021.
[2024-10-05 14:50] LABS: Troponin I < 0.01 ng/ml (0.00-0.034)
[2024-10-05 15:02] LABS: NT Pro Brain Natriuretic Pep. 263 pg/mL (0-450)
[2024-10-05] MEDS: SODIUM CHLORIDE 0.9% 10ML SYR (RAD ONLY) 10 ML IV (15:05)
[2024-10-05] MEDS: IOPAMIDOL-370 (76%);100ML BOTTLE 80 ML IV (15:05)
[2024-10-05] MEDS: 0.9 % SODIUM CHLORIDE 50 ML VIAL 40 ML IV (15:05)
[2024-10-05 16:27] LABS: HIV (1&2) Antibody Rapid NONREACTIVE (NONREACTIVE)
[2024-10-06 05:24] LABS: HCV Ab Non Reactive (Non Reactive)
== END 2024-10-05 16:25 | disposition home or self-care (01) ==
PROVIDERS: Emergency Medicine; Emergency Provider Emergency Medicine; PCP Family Medicine
DX: R07.9 Chest pain, unspecified (principal); I87.8 Other specified disorders of veins; R06.02 Shortness of breath; R42 Dizziness and giddiness; R25.9 Unspecified abnormal involuntary movements; R22.43 Localized swelling, mass and lump, lower limb, bilateral; R22.33 Localized swelling, mass and lump, upper limb, bilateral
CPT/HCPCS: 71045; 71275; 80053; 83880; 84484; 85025; 85378; 86803; 87389; 93005; 99285; Q9967

== ENCOUNTER 2025-05-02 15:26 | Emergency (ER) | payer MEDICARE, OTHER, SELFPAY ==
[2025-05-02] VITALS (8 sets, daily range): BP systolic 133–199; BP diastolic 86–127; PULSE 80–116; RESP 11–31; TEMP 36.8; O2SAT 93–98; BMI 25.2
--- NOTE | 2025-05-02 15:56 | CT_ITS ---
PROCEDURE INFORMATION: Exam: CT Abdomen And Pelvis With Contrast Exam date and time: 05/02/2025 5:05 PM Age: 79 years old Clinical indication: Abdominal pain; Additional info: Left upper abdominal pain TECHNIQUE: Imaging protocol: Computed tomography of the abdomen and pelvis with contrast. Radiation optimization: All CT scans at this facility use at least one of these dose optimization techniques: automated exposure control; mA and/or kV adjustment per patient size (includes targeted exams where dose is matched to clinical indication); or iterative reconstruction. Contrast material: ISOVUE; Contrast volume: 75 ml; Contrast route: IV; COMPARISON: No relevant prior studies available. FINDINGS: Lungs: Dependent bilateral lung base opacities favor atelectasis. Liver: There is diffuse hypoattenuation of the liver compatible with moderate hepatic steatosis. Gallbladder and biliary ducts: There are surgical clips within the gallbladder fossa. Pancreas: Fatty infiltration of the pancreas is demonstrated without inflammatory changes. Spleen: Periphery calcified cyst of the spleen measures 4.8 cm. Adrenal glands: Normal. No mass. Kidneys and ureters: Multiple Bosniak 1 renal cystic lesions defined as homogeneous and fluid density (-9 to 20 HU), no septations or calcifications, having dixon smooth and thin. Largest cyst measures 7.5 cm. No follow-up recommended. Stomach and bowel: Unremarkable. No obstruction. No mucosal thickening. Appendix: No evidence of appendicitis. Intraperitoneal space: Unremarkable. No free air. No significant fluid collection. Vasculature: Moderate calcific atherosclerotic disease of the abdominal aorta without aneurysmal dilatation is present. Lymph nodes: Left upper quadrant increased attenuation of the mesentery with fat stranding, and cluster of mildly enlarged mesenteric nodes. Urinary bladder: Unremarkable as visualized. Reproductive: Unremarkable as visualized. Bones/joints: Moderate loss of intervertebral disc space with degenerative changes involving L5-S1 Soft tissues: Normal. IMPRESSION: Constitution of findings that can be seen with sclerosing mesenteritis. COMMENTS: Consistent with the [employer]'s Incidental Findings Committee white paper (J Am Vivek Radiol 2018): Any incidental renal lesion less than 1 cm or classified as too small to characterize, or any incidental cystic renal lesion characterized as simple-appearing, is likely benign. No follow-up imaging is recommended for these lesions per consensus recommendations based on imaging criteria.
[2025-05-02] MEDS: KETOROLAC 30MG/ML VIAL 30 MG IV (16:04)
[2025-05-02] MEDS: FAMOTIDINE 20MG/2ML VIAL 20 MG IV (16:04)
[2025-05-02] MEDS: ONDANSETRON 4MG/2ML VIAL 4 MG IV (16:04)
--- NOTE | 2025-05-02 16:15 | ED_ITS ---
Discharge Plan Disposition Patient Disposition: Home, Self-Care Prescriptions Prescriptions: No Action buspirone 5 mg tablet 5 mg PO BID Qty: 180 1RF lisinopril 5 mg tablet 5 mg PO DAILY Qty: 30 2RF alprazolam [Xanax] 0.5 mg tablet 0.5 mg PO TID PRN (Reason: anxiety) Qty: 90 5RF escitalopram oxalate 10 mg tablet See Rx Instructions .ROUTE .COMPLEX Qty: 90 1RF Dose Instruction: TAKE ONE TABLET BY MOUTH EVERY DAY Rx Instructions: TAKE ONE TABLET BY MOUTH EVERY DAY atorvastatin 10 mg tablet 10 mg PO DAILY Patient Comments: TAKE ONE TABLET BY MOUTH AT BEDTIME alprazolam [Xanax] 1 mg tablet 0.5 mg PO TID PRN (Reason: anxiety) Qty: 45 5RF Rx Instructions: use sparingly when able cholecalciferol (vitamin D3) 1,250 mcg (50,000 unit) capsule 1,250 mcg PO WEEKLY Qty: 7 0RF Referrals Follow up/Referrals: Hany Guy II, MD [Staff Physician, Gastroenterology] - See instructions Caden Pena MD [Primary Care Provider, Family Practice] - See instructions Activity Restrictions/Add. Instructions Additional Instructions/Restrictions: Please follow with Dr Pena and Call for appt with Dr Guy as well. If any other problems or concerns please return to ER Clinical Impressions Clinical Impression: Sclerosing mesenteritis Instructions Patient Instructions: DI for Acute Abdominal Pain Print Language Print Language: Kinyarwanda Discharge ED Provider: Mika Prabhakar General Adult HPI <Nay Daniel (ED), CALLISTHENICS INSTRUCTOR - Last Filed: 05/02/25 18:44> General Chief complaint: Abdominal Pain Stated complaint: L upper quadrant abdominal pain Time Seen by Provider: 05/02/25 15:47 Mode of Arrival: Ambulatory Source of Information: Patient Description of Symptoms (Recalled from ER Triage Doc. by RN): PT presents to the ED for evaluation for left abd pain. PT states she has a mass on the left side of her stomach. History of Present Illness HPI narrative: 79-year-old female presents to the ED today for complaints of left upper abdominal pain, nausea, spasm that has been happening more today and over the past 2 to 3 weeks. Patient states that she was sent up here 2 years ago and told she had a mass. She does arrive here also with elevated blood pressure. She waits until her blood pressure elevates to take her irbesartan. Related Data Home Medications ?Medication ?Instructions ?Recorded ?Confirmed atorvastatin 10 mg tablet 10 mg PO DAILY 09/18/2402/14 Previous Rx's ?Medication ?Instructions ?Recorded buspirone 5 mg tablet 5 mg PO BID #180 tabs escitalopram oxalate 10 mg tablet See Rx Instructions .Route 01/06/24 .COMPLEX #90 tabs alprazolam 1 mg tablet (Xanax) 0.5 mg (1/2 x 1 mg) PO TID PRN 11/27/24 anxiety #45 tabs lisinopril 5 mg tablet 5 mg PO DAILY #30 tabs 01/23 cholecalciferol (vitamin D3) 1,250 1,250 mcg PO WEEKLY #7 caps 02/20/25 mcg (50,000 unit) capsule alprazolam 0.5 mg tablet (Xanax) 0.5 mg PO TID PRN anx iety #90 tabs 03/05/25 Allergies Allergy/AdvReac Type Severity Reaction Status Date / Time aspirin Allergy Unknown Verified 03/05/25 16:04 duloxetine (From Cymbalta) Allergy Unknown Verified 03/05/25 16:04 ibuprofen Allergy Unknown Verified 03/05/25 16:04 Sulfa (Sulfonamide Allergy Verified 03/05/25 16:04 Antibiotics) [facility] <Nay Daniel (ED), CALLISTHENICS INSTRUCTOR - Last Filed: 05/02/25 18:44> [facility] Disclaimer: The information contained in this section may have been updated after the patient was seen, as this information can be updated by other users. Medical History Neoplasm of uncertain behavior of scalp History of recent fall Chronic back pain greater than 3 months duration GERD (gastroesophageal reflux disease) Asthma Anxiety Depression Surgical History History of cholecystectomy Hx of tubal ligation Family History Other Cancer Hyperlipidemia Social History Smoking Status: Never smoker alcohol intake: never substance use type: denies use current occupational status: retired Travel in the last 8 weeks?: None household members: none housing: house current occupational exposures/hazards: No caffeine: Yes Have you lived/traveled outside [place] in past 30 days?: No Contact w/someone who lives/traveled outside US past 30 days?: No Exposure to someone with infectious disease in past 14 days?: No Do you have a fever (greater than 100.4 F or 38 C)?: No Have you tested positive for COVID-19?: No Exposed to someone with COVID-19 in past 14 days?: No Do you have a sore throat?: No Do you have a cough?: No Do you have any weakness?: No Do you have any diarrhea?: No Are you experiencing any unusual bleeding?: No Do you have any muscle aches/pain?: No Do you have any abdominal pain?: No Are you experiencing loss of taste or smell?: No Other Medical History Have you received the Flu Vaccine for this season: Yes Have you received the Pneumonia Vaccine: Yes <Nay Daniel (ED), CALLISTHENICS INSTRUCTOR - Last Filed: 05/02/25 18:44> ROS Obtained: Yes Systems reviewed as appropriate & no additional complaints except as documented Constitutional Constitutional: Reports as per HPI Physical Exam <Nay Daniel (ED), CALLISTHENICS INSTRUCTOR - Last Filed: 05/02/25 18:44> General General appearance: alert and anxious Head Head exam: atraumatic and normocephalic Eye Eye exam: Present normal appearance, PERRL and EOMI ENT ENT exam: Present normal oropharynx and mucous membranes moist Neck Neck exam: Present full ROM and trachea midline Respiratory Respiratory exam: Present normal lung sounds bilaterally Cardiovascular Cardiovascular exam: Present regular rate, normal rhythm, normal heart sounds, +S1 and +S2 Abdominal Exam Abdominal exam: Present soft and normal bowel sounds Extremities Exam Extremities exam: Present normal inspection, full ROM and normal capillary refill Neurological Exam Neurological exam: Present alert, oriented X3 and normal gait Skin Skin exam: Present warm, dry and intact Medical Decision Making <Nay Daniel (ED), CALLISTHENICS INSTRUCTOR - Last Filed: 05/02/25 18:44> Medical Records Screening: Per USPSTF and CDC recommendations, given the prevalence of disease in our region, it is our hospital?s policy to screen for HIV and viral Hepatitis for all patients aged 18 and over and those with ongoing risk factors. Rafiq Inquiry Pt receiving controlled substance: No Rafiq was queried for this patient: No Vital Signs: 05/02/25 15:36 05/02/25 16:00 05/02/25 16:30 Temperature 98.3 F Temperature Source Oral Pulse Rate 114 H 104 H Pulse Rate [Right] 116 H Respiratory Rate 18 31 H 11 L Blood Pressure 199/127 H 164/101 H Blood Pressure [Right Arm] 173/98 H Blood Pressure Mean [Right Arm] 123 02 Sat by Pulse Oximetry 97 98 96 Oxygen Delivery Method 05/02/25 17:22 05/02/25 17:34 05/02/25 18:00 Temperature Temperature Source Pulse Rate 99 H 87 90 Pulse Rate [Right] Respiratory Rate 23 25 H 24 Blood Pressure 172/86 H 155/111 H 133/88 Blood Pressure [Right Arm] Blood Pressure Mean [Right Arm] 02 Sat by Pulse Oximetry 93 L 97 97 Oxygen Delivery Method Room Air Room Air 05/02/25 18:30 05/02/25 19:13 Temperature 98.2 F Temperature Source Pulse Rate 93 H 80 Pulse Rate [Right] Respiratory Rate 15 20 Blood Pressure 144/106 H 140/99 H Blood Pressure [Right Arm] Blood Pressure Mean [Right Arm] 02 Sat by Pulse Oximetry 95 Oxygen Delivery Method Room Air Lab Data Lab Results 05/02/25 16:14: WBC 5.8, RBC 4.86, Hgb 14.2, Hct 43.4, MCV 89.3, MCH 29.2, MCHC 32.7, RDW 12.1, Plt Count 251, MPV 9.4, Neut % (Auto) 65.2, Lymph % (Auto) 24.1, [place] % (Auto) 6.9, Eos % (Auto) 3.1, Baso % (Auto) 0.5, Neut # (Auto) 3.8, Lymph # (Auto) 1.4, [place] # (Auto) 0.4, Eos # (Auto) 0.2, Baso # (Auto) 0.0, Sodium 139, Potassium 3.7, Chloride 102, Carbon Dioxide 33 H, Anion Gap 7.7, BUN 13, Creatinine 0.90, Estimated Creat Clear 48, Estimated GFR 60, Est GFR ( Amer) 73, Glucose 113 H, Calcium 9.5, Magnesium 2.0, Total Bilirubin 1.6 H, AST 34, ALT 21, Alkaline Phosphatase 48, Troponin I < 0.01, Total Protein 8.2, Albumin 4.9, Globulin 3.3 H, Albumin/Globulin Ratio 1.5, Lipase 22 L 05/02/25 16:14 05/02/25 16:14 Orders (Tests/Meds): ED MEDICATIONS Discontinued Medications Generic Name Dose Route Start Last Admin Trade Name Freq PRN Reason Stop Dose Admin Famotidine 20 mg 05/02/25 15:56 05/02/25 16:04 Famotidine 20mg/2ml Vial IV 05/02/25 15:57 20 mg ONCE ONE Administration Iopamidol 75 ml 05/02/25 17:05 05/02/25 17:06 Iopamidol-370 (76%);100ml Bottle IV 05/02/25 17:06 75 ml ONCE ONE Administration Irbesartan 150 mg 05/02/25 16:07 05/02/25 16:18 Irbesartan 150mg Tab PO 05/02/25 16:08 150 mg ONCE ONE Administration Ketorolac Tromethamine 30 mg 05/02/25 15:56 05/02/25 16:04 Ketorolac 30mg/Ml Vial IV 05/02/25 15:57 30 mg ONCE ONE Administration Ondansetron HCl 4 mg 05/02/25 15:58 05/02/25 16:04 Ondansetron 4mg/2ml Vial IV 05/02/25 15:59 4 mg ONCE ONE Administration Sodium Chloride 8 ml 05/02/25 15:56 Sodium Chloride 0.9% 10ml Vial IV 06/01/25 15:55 NEEDED PRN dilute pepcid Sodium Chloride 10 ml 05/02/25 17:05 05/02/25 17:05 Sodium Chloride 0.9% 10ml Syr (Rad Only) IV 05/02/25 17:06 10 ml ONCE ONE Administration ORDERS Category Date Time Status CT abdomen pelvis w con Stat Cat Scan 05/02/25 15:56 Completed CBC [Complete Blood Count Auto Diff] Stat Lab 05/02/25 16:14 Completed Comprehensive Metabolic Panel Stat Lab 05/02/25 16:14 Completed Lipase Stat Lab 05/02/25 16:14 Completed Magnesium Stat Lab 05/02/25 16:14 Completed Trop I [Troponin I] Stat Lab 05/02/25 16:14 Completed Medical Decision Narrative: patient is a 79-year-old female presenting to the emergency department for evaluation of left upper abdominal pain, nausea, pressure in her left abdomen.. Patient is hemodynamically stable and nontoxic-appearing upon arrival, afebrile. Differential diagnosis includes mass of unknown significance, pancreatitis, hypertension, among other. Workup will be conducted with hematologic labs, specific imaging. Initial inventions include [crystalloid bolus, analgesic. Initial workup reviewed by me lab work unremarkable. Imaging informally interpreted by me and remarkable for inflammation. Formal imaging read remarkable for sclerosing mesenteritis. Discussed this with Dr. Prabhakar he believes that patient can just follow-up with GI in her normal PCP in follow-up. Discussed this with patient and patient is fine following up with Dr. Guy and Dr. Pena. Upon repeat evaluation patient's pain is improved. Discussed plan with patient and Dr. Prabhakar and both agree. <Mika Prabhakar MD - Last Filed: 05/02/25 20:55> Vital Signs: 05/02/25 15:36 05/02/25 16:00 05/02/25 16:30 Temperature 98.3 F Temperature Source Oral Pulse Rate 114 H 104 H Pulse Rate [Right] 116 H Respiratory Rate 18 31 H 11 L Blood Pressure 199/127 H 164/101 H Blood Pressure [Right Arm] 173/98 H Blood Pressure Mean [Right Arm] 123 02 Sat by Pulse Oximetry 97 98 96 Oxygen Delivery Method 05/02/25 17:22 05/02/25 17:34 05/02/25 18:00 Temperature Temperature Source Pulse Rate 99 H 87 90 Pulse Rate [Right] Respiratory Rate 23 25 H 24 Blood Pressure 172/86 H 155/111 H 133/88 Blood Pressure [Right Arm] Blood Pressure Mean [Right Arm] 02 Sat by Pulse Oximetry 93 L 97 97 Oxygen Delivery Method Room Air Room Air 05/02/25 18:30 05/02/25 19:13 Temperature 98.2 F Temperature Source Pulse Rate 93 H 80 Pulse Rate [Right] Respiratory Rate 15 20 Blood Pressure 144/106 H 140/99 H Blood Pressure [Right Arm] Blood Pressure Mean [Right Arm] 02 Sat by Pulse Oximetry 95 Oxygen Delivery Method Room Air Lab Data Lab Results 05/02/25 16:14: WBC 5.8, RBC 4.86, Hgb 14.2, Hct 43.4, MCV 89.3, MCH 29.2, MCHC 32.7, RDW 12.1, Plt Count 251, MPV 9.4, Neut % (Auto) 65.2, Lymph % (Auto) 24.1, [place] % (Auto) 6.9, Eos % (Auto) 3.1, Baso % (Auto) 0.5, Neut # (Auto) 3.8, Lymph # (Auto) 1.4, [place] # (Auto) 0.4, Eos # (Auto) 0.2, Baso # (Auto) 0.0, Sodium 139, Potassium 3.7, Chloride 102, Carbon Dioxide 33 H, Anion Gap 7.7, BUN 13, Creatinine 0.90, Estimated Creat Clear 48, Estimated GFR 60, Est GFR ( Amer) 73, Glucose 113 H, Calcium 9.5, Magnesium 2.0, Total Bilirubin 1.6 H, AST 34, ALT 21, Alkaline Phosphatase 48, Troponin I < 0.01, Total Protein 8.2, Albumin 4.9, Globulin 3.3 H, Albumin/Globulin Ratio 1.5, Lipase 22 L Orders (Tests/Meds): ED MEDICATIONS Discontinued Medications Generic Name Dose Route Start Last Admin Trade Name Freq PRN Reason Stop Dose Admin Famotidine 20 mg 05/02/25 15:56 05/02/25 16:04 Famotidine 20mg/2ml Vial IV 05/02/25 15:57 20 mg ONCE ONE Administration Iopamidol 75 ml 05/02/25 17:05 05/02/25 17:06 Iopamidol-370 (76%);100ml Bottle IV 05/02/25 17:06 75 ml ONCE ONE Administration Irbesartan 150 mg 05/02/25 16:07 05/02/25 16:18 Irbesartan 150mg Tab PO 05/02/25 16:08 150 mg ONCE ONE Administration Ketorolac Tromethamine 30 mg 05/02/25 15:56 05/02/25 16:04 Ketorolac 30mg/Ml Vial IV 05/02/25 15:57 30 mg ONCE ONE Administration Ondansetron HCl 4 mg 05/02/25 15:58 05/02/25 16:04 Ondansetron 4mg/2ml Vial IV 05/02/25 15:59 4 mg ONCE ONE Administration Sodium Chloride 8 ml 05/02/25 15:56 Sodium Chloride 0.9% 10ml Vial IV 06/01/25 15:55 NEEDED PRN dilute pepcid Sodium Chloride 10 ml 05/02/25 17:05 05/02/25 17:05 Sodium Chloride 0.9% 10ml Syr (Rad Only) IV 05/02/25 17:06 10 ml ONCE ONE Administration ORDERS Category Date Time Status CT abdomen pelvis w con Stat Cat Scan 05/02/25 15:56 Completed CBC [Complete Blood Count Auto Diff] Stat Lab 05/02/25 16:14 Completed Comprehensive Metabolic Panel Stat Lab 05/02/25 16:14 Completed Lipase Stat Lab 05/02/25 16:14 Completed Magnesium Stat Lab 05/02/25 16:14 Completed Trop I [Troponin I] Stat Lab 05/02/25 16:14 Completed ECG Data Tracing #1: I reviewed this ECG and interpreted as documented below: (Sinus rhythm sinus arrhythmia. Ventricular rate 91 bpm with ND 155, QRS 97, QTc 410. Normal axis no acute ischemic changes. Incomplete right bundle block morphology) Medical Decision Narrative: patient is a 79-year-old female presenting to the emergency department for evaluation of left upper abdominal pain, nausea, pressure in her left abdomen.. Patient is hemodynamically stable and nontoxic-appearing upon arrival, afebrile. Differential diagnosis includes mass of unknown significance, pancreatitis, hypertension, among other. Workup will be conducted with hematologic labs, specific imaging. Initial inventions include [crystalloid bolus, analgesic. Initial workup reviewed by me lab work unremarkable. Imaging informally interpreted by me and remarkable for inflammation. Formal imaging read remarkable for sclerosing mesenteritis. Discussed this with Dr. Prabhakar he believes that patient can just follow-up with GI in her normal PCP in follow-up. Discussed this with patient and patient is fine following up with Dr. Guy and Dr. Pena. Upon repeat evaluation patient's pain is improved. Discussed plan with patient and Dr. Prabhakar and both agree. I was consulted by the CHEIKH, and we discussed the complexity of the problems being addressed. I approved the treatment and management plan for this patient's care in the Emergency Department, thus performing a substantive portion of the medical decision making. Mika Prabhakar MD Critical Care <Nay Daniel (ED), CALLISTHENICS INSTRUCTOR - Last Filed: 05/02/25 18:44> Critical Care Time Critical Care Time: No
[2025-05-02] MEDS: IRBESARTAN 150MG TAB 150 MG PO (16:18)
--- NOTE | 2025-05-02 16:24 | ECG_ITS ---
APPROVED REPORT Exam: Resting ECG HR:91 bpm ECG Measurements Heart Rate 91 AXES NE 155 P 60 QRSd 97 QRS 11 QT 361 T 66 QTc 410 Conclusion Sinus rhythm Incomplete right bundle branch block morphology Electronically signed by : ANGEL LUIS LOPEZ, 05/08/2025 07:46:03
[2025-05-02 16:25] LABS: Basophils % 0.5 % (0.1-2.0); Eosinophils # 0.2 Kmm3 (0.0-0.4); Eosinophils % 3.1 % (0.1-12.0); Hematocrit 43.4 % (37.0-47.0); Hemoglobin 14.2 g/dL (12.2-16.2); Immature Granulocytes # 0.01 10^3uL; Immature Granulocytes % 0.2 %; Lymphocytes # 1.4 K/mm3 (0.7-4.5); Lymphocytes % 24.1 % (10-50); Mean Corpuscular HGB Conc 32.7 g/dL (31.8-35.4); Mean Corpuscular Hemoglobin 29.2 pg (27.0-31.2); Mean Corpuscular Volume 89.3 fl (81-99); Mean Platelet Volume 9.4 fl (7.4-10.4); Monocytes # 0.4 K/mm3 (0.1-1.0); Monocytes % 6.9 % (1.7-9.3); Neutrophils # 3.8 K/mm3 (1.8-7.8); Neutrophils % 65.2 % (37.0-80.0); Nucleated Red Blood Cells # 0 10^3/uL; Nucleated Red Blood Cells % 0 %; Platelet Count 251 K/mm3 (142-424); Red Blood Count 4.86 M/mm3 (4.20-5.40); Red Cell Distribution Width 12.1 % (11.5-17.5); Red Cell Distribution Width-SD 39.7 fL; White Blood Count 5.8 K/mm3 (4.8-10.8)
[2025-05-02 16:35] LABS: Albumin Level 4.9 g/dl (3.5-5.0); Chloride 102 mmol/L (98-107)
[2025-05-02 16:36] LABS: Potassium 3.7 mmoL/L (3.5-5.1); Sodium 139 mmol/L (136-145)
[2025-05-02 16:38] LABS: Alanine Aminotransferase 21 U/L (12-78); Anion Gap 7.7 mEq/L (5-15); Aspartate Amino Transferase 34 U/L (14-36); Blood Urea Nitrogen 13 mg/dl (7-17); Carbon Dioxide 33 mmol/L (22.0-30.0); Creatinine Clearance Estimated 48 mL/min (50-200); Estimated Glomerular Filt Rate 60 ml/min (>60); GFR (African American) 73 ML/MIN (>60)
[2025-05-02 16:39] LABS: Albumin/Globulin Ratio 1.5 (1.1-1.8); Alkaline Phosphatase 48 U/L (38-126); Bilirubin,Total 1.6 mg/dl (0.2-1.3); Calcium 9.5 mg/dl (8.4-10.2); Globulin 3.3 g/dL (1.3-3.2); Glucose 113 mg/dl (74-100); Lipase 22 U/L (23-300); Total Protein,Serum 8.2 g/dl (6.3-8.2)
[2025-05-02 17:04] LABS: Troponin I < 0.01 ng/ml (0.00-0.034)
[2025-05-02] MEDS: SODIUM CHLORIDE 0.9% 10ML SYR (RAD ONLY) 10 ML IV (17:05)
[2025-05-02] MEDS: IOPAMIDOL-370 (76%);100ML BOTTLE 75 ML IV (17:06)
== END 2025-05-02 19:14 | disposition home or self-care (01) ==
PROVIDERS: Nurse Practitioner; Emergency Provider Emergency Medicine; PCP Family Medicine
DX: R10.12 Left upper quadrant pain (principal); K65.4 Sclerosing mesenteritis
CPT/HCPCS: 74177; 80053; 83690; 83735; 84484; 85025; 93005; 96374; 96375; 99284; J1885; J2405; Q9967

== ENCOUNTER 2025-05-07 10:51 | Outpatient (CLI) | payer MEDICARE, OTHER, SELFPAY ==
[2025-05-07 19:13] LABS: Erythrocyte Sedimentation Rate 15 mm/hr (0-30)
[2025-05-07 19:26] LABS: C-Reactive Protein 4.1 mg/L (0-4)
--- OUTSIDE RECORDS SUMMARY | 2025-05-09 11:12 | XMS_ITS | Clinical Summary ---
Author Organization Healthcare Address [address] [place] [address] Care Team Providers Care Garnett Machine Operator Name Role Phone Silas Guevara MD Primary Care Provid er Family History Medical History Relation Name Comments Conversions - Other Other 1 Back [place] Heart attack Other 2 Stroke Other 3 Diabetes Other 4 Hypertension Other 5 Other cancer Other 6 Relation Name Status Comments Other 1 Other 2 Other 3 Other 4 Other 5 Other 6 Social History Tobacco Use Types Packs/Day Years Used Date Smoking Tobacco: Former Comments Unknown Sex and Gender Information Value Date Recorded Sex Assigned at Not on file Legal Sex Female 8:53 PM EDT Gender Identity Not on file Sexual Orientation Not on file Last Filed Vital Signs Vital Sign Reading Time Taken Comments Blood Pressure 167/94 12/05/2019 1:15 PM EST Pulse 80 12/05/2019 1:15 PM EST Temperature 36.6 C (97.8 F) 12/05/2019 1:15 PM EST Respiratory Rate 16 12/05/2019 1:15 PM EST Oxygen Saturation - - Inhaled Oxygen Concentration - - Weight 66.7 kg (147 lb) 12/05/2019 1:15 PM EST Height 162.6 cm (5' 4 ) 12/05/2019 1:15 PM EST Body Mass Index 25.23 12/05/2019 1:15 PM EST Plan of Treatment Health Maintenance Due Date Last Done Comments [facility]-Bone Density Scan 1943 [facility]-Depression Screening 1943 [facility]-Infant/Child/Adol SDOH Screenings 1943 [facility]- SDOH Screenings 1961 [facility]-Adult SDOH Screenings 1961 [facility]-DTaP,Tdap,and Td Vaccines (1 - Tdap) 1962 [facility]-Pneumococcal Vaccine: 50+ Years (1 of 1 - PCV) 1993 [facility]-Zoster Vaccines (1 of 2) 1993 [facility]-RSV Vaccine: 60+ Years or (1 - 1-dose 75+ series) 2018 [facility]-[id number]-[id number] Vaccine ( - season) 2024 09/10/2022, 06/09/2022, 10/04/2021, Additional history exists [facility]-Influenza Vaccine (Season Ended) 2025 11/27/2021, 09/05/2018, 09/23/2017 HPV Vaccines Aged Out No longer eligi ble based on patient's age to complete this topic [facility]-HIB Vaccines Aged Out No longer e ligible based on patient's age to complete this topic [facility]-Hepatitis A Vaccines Aged Out No longer eligible based on patient's age to complete this topic [facility]-IPV Vaccines Aged Out No longer e ligible based on patient's age to complete this topic [facility]-Rotavirus Vaccines Aged Out No lo nger eligible based on patient's age to complete this topic Insurance Care Teams Garnett Machine Operator Relationship Specialty Start Date End Date Silas Guevara MD [address] [place] [address] PCP - General 03/28/21
--- OUTSIDE RECORDS SUMMARY | 2025-05-09 11:12 | XMS_ITS | Referral Summary ---
Author Organization [facility] Address [facility] [place] [address] Care Team Providers Care Patient Partner Name Role Phone Unavailable Primary Care Provider Unavailabl e Allergies Active Allergy Reactions Criticality Noted Date Comments Aspirin 06/23/2024 Duloxetine 06/23/2024 Ibuprofen 06/23/2024 Nitrofurantoin Monohyd/M-Cryst 06/23 Active Problems Problem Noted Date Diagnosed Date Abdominal pain 06/23/2024 Bloating 06/23/2024 Constipation, unspecified constipation type 07/2024 Excessive gas 06/23/2024 Social History Tobacco Use Types Packs/Day Years Used Date Smoking Tobacco: Never Assessed Comments Unknown Sex and Gender Information Value Date Recorded Sex Assigned at Not on file Legal Sex Female 7:38 PM CDT Gender Identity Not on file Sexual Orientation Not on file Plan of Treatment Not on file Insurance MEDICARE PART A B
--- OUTSIDE RECORDS SUMMARY | 2025-05-09 11:12 | XMS_ITS | Encounter Summary ---
Author Organization [employer] Address [address] [place] [address] Care Team Providers Care Sales Representative [employer] Service Name Role Phone Unavailable Primary Care Provider Unavailabl e Reason for Visit * Auth/Cert (Routine) Specialty Diagnoses / Procedures Referred By Chriss t Referred To Contact Procedures [facility] ESOPHAGOGASTRODUODENOSCOPY TRANSORAL DIAGNOSTIC [facility] [address] [place] [address] Phone: tel: fax: [facility] [address] [place] [address] Phone: tel: fax: Referral ID Status Reason Start Date Expiration Date Visits Re quested Visits Authorized [id number] 1 1 Encounter Details Date Type Department Care Team (Late st Contact Info) Description 08/15/2024 Hospital Encounter [facility] [address] [place] [address] Juancho No MD [address] [place] [address] Social History Tobacco Use Types Packs/Day Years Used Date Smoking Tobacco: Never Assessed Comments Unknown Sex and Gender Information Value Date Recorded Sex Assigned at Not on file Legal Sex Female 7:38 PM CDT Gender Identity Not on file Sexual Orientation Not on file documented as of this encounter H&P Notes * Moira Hein PA-C - 08/09/2024 1:35 PM EDT Procedure canceled. HPI History Of Present Illness Patient is here today for evaluation of abdominal pain, bloating, constipation and complaints of excessive gas. Referred by Dr Rangel. No known family history of GI disease or malignancy. 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 Current GI Meds: Past Medical History No past medical history on file. Surgical History No past surgical history on file. Social History Family History No family history on file. Allergies Allergies Allergen Reactions Aspirin Cymbalta [Duloxetine] Ibuprofen Macrobid [Nitrofurantoin Monohyd/M-Cryst] Medications No current facility-administered medications for this encounter. No current outpatient medications on file. Review of Systems Review of Systems Gastrointestinal: Positive for abdominal pain, constipation and heartburn. VITALS No data recorded Physical Exam Physical Exam Vitals reviewed. Constitutional: Appearance: Normal appearance. HENT: Head: Normocephalic and atraumatic. Mouth/Throat: Mouth: Mucous membranes are moist. Eyes: Extraocular Movements: Extraocular movements intact. Pupils: Pupils are equal, round, and reactive to light. Cardiovascular: Rate and Rhythm: Normal rate and regular rhythm. Heart sounds: Normal heart sounds. Pulmonary: Effort: Pulmonary effort is normal. Breath sounds: Normal breath sounds. Abdominal: General: Abdomen is flat. Bowel sounds are normal. Palpations: Abdomen is soft. Tenderness: There is no abdominal tenderness. Musculoskeletal: General: Normal range of motion. Cervical back: Normal range of motion and neck supple. Skin: General: Skin is warm and dry. Neurological: Mental Status: She is alert and oriented to person, place, and time. Psychiatric: Mood and Affect: Mood normal. Behavior: Behavior normal. Assessment & Plan Abdominal pain, constipation, bloating. Proceed with EGD for further evaluation. Risks including that of infection, splenic rupture, bleeding and perforation have been discussed with the patient who verbalizes understanding and agrees to proceed. Further recommendations will be based on the above findings. Electronically signed by: Moira Hein PA-C, 1:35 PM 08/09/24 pa Cosigned by Juancho No MD at 09/06/2024 3:56 PM EDT * Awilda Avina PA-C - 07/07/2024 11:42 AM EDT Rescheduled to August! HPI History Of Present Illness Patient is here today for evaluation of abdominal pain, constipation. No known family history of GI disease or malignancy. Denies use of aspirin, NSAIDs, anticoagulation/antiplatelets. Previous EGD: No records found Recent imaging or labs: CT AP with oral and IV: Constipation, otherwise no GI findings. No labs in system. Current GI Meds: Past Medical History No past medical history on file. Surgical History No past surgical history on file. Social History Family History No family history on file. Allergies Allergies Allergen Reactions Aspirin Cymbalta [Duloxetine] Ibuprofen Macrobid [Nitrofurantoin Monohyd/M-Cryst] Medications No current facility-administered medications for this encounter. No current outpatient medications on file. Review of Systems Review of Systems All other systems reviewed and are negative. VITALS No data recorded Physical Exam Physical Exam Constitutional: Appearance: Normal appearance. HENT: Head: Normocephalic and atraumatic. Mouth/Throat: Mouth: Mucous membranes are moist. Eyes: Extraocular Movements: Extraocular movements intact. Pupils: Pupils are equal, round, and reactive to light. Cardiovascular: Rate and Rhythm: Normal rate and regular rhythm. Heart sounds: Normal heart sounds. Pulmonary: Effort: Pulmonary effort is normal. Breath sounds: Normal breath sounds. Abdominal: General: Abdomen is flat. Bowel sounds are normal. Palpations: Abdomen is soft. Tenderness: There is no abdominal tenderness. Musculoskeletal: General: Normal range of motion. Cervical back: Normal range of motion and neck supple. Skin: General: Skin is warm and dry. Neurological: Mental Status: She is alert and oriented to person, place, and time. Psychiatric: Mood and Affect: Mood normal. Behavior: Behavior normal. Assessment & Plan Abdominal pain, constipation. Proceed with EGD for further evaluation. Risks including that of infection, splenic rupture, bleeding and perforation have been discussed with the patient who verbalizesunderstanding and agrees to proceed. Further recommendations will be based on the above findings. Electronically signed by: AWILDA AVINA PA-C, 11:42 AM 07/07/24 Cosigned by Juancho No MD at 07/12/2024 7:25 PM EDT documented in this encounter Plan of Treatment Not on file documented as of this encounter Visit Diagnoses Diagnosis Abdominal pain Abdominal pain, unspecified site Bloating Flatulence, eructation, and gas pain Constipation, unspecified constipation type Excessive gas documented in this encounter Admitting Diagnoses Diagnosis Abdominal pain Abdominal pain, unspecified site Bloating Flatulence, eructation, and gas pain Constipation, unspecified constipation type Excessive gas documented in this encounter
--- OUTSIDE RECORDS SUMMARY | 2025-05-09 11:12 | XMS_ITS | Clinical Summary ---
Author Organization [facility] Address [address] [place] [address] [place] [address] Phone Care Team Providers Care Physiotherapy Practice Manager Name Role Phone Isamel CHARLES MD, Silas Nixon Primary Care P rovider Allergies No known active allergies Social History Tobacco Use Types Packs/Day Years Used Date Smoking Tobacco: Never Assessed Comments Unknown Sex and Gender Information Value Date Recorded Sex Assigned at Not on file Legal Sex Female 1:56 AM EDT Gender Identity Not on file Sexual Orientation Not on file Plan of Treatment Health Maintenance Due Date Last Done Comments Wellness Exam Medicare 1948 DTaP/TDaP/Td (1 - Tdap) 1962 Pneumococcal Vaccine 50+ (1 of 1 - PCV) 1993 Zoster (1 of 2) 1993 Bone Density Screening 2008 RSV or 60+ (1 - 1-d ose 75+ series) 2018 COVID-19 Vaccine (2023-2 5 season) 2024 Influenza Vaccine (Season Ended) 2025 Hepatitis B Vaccine Aged Out No longe r eligible based on patient's age to complete this topic Meningococcal B Vaccine Aged Out No l onger eligible based on patient's age to complete this topic Insurance MEDICARE [place] PART A AND B [facility] Care Teams Physiotherapy Practice Manager Relationship Specialty Start Date End Date Silas Guevara III, MD [address] [place] [id number] PCP - General Family Medicine 11/17/12
--- OUTSIDE RECORDS SUMMARY | 2025-05-09 11:12 | XMS_ITS | Clinical Summary ---
Author Organization [facility] [employer] Address [facility] [place] [address] Care Team Providers Care Hat Renovator Name Role Phone Unavailable Primary Care Provider [...]
== END 2025-05-07 23:59 | disposition home or self-care (01) ==
LOC: LAB.DROPOF 05-09 10:52
PROVIDERS: PCP Family Medicine; Visit Provider Family Medicine
DX: M15.4 Erosive (osteo)arthritis (principal)
CPT/HCPCS: 85651; 86140